=== PATIENT | female | born 1960 | race American Indian/Alaskan Native ===

== ENCOUNTER 2022-02-16 04:44 | Emergency (ER) | payer SELFPAY ==
[2022-02-16] MEDS ORDERED: ONDANSETRON 4 MG/2 ML INJ IV ONE (10:35)
[2022-02-16] MEDS ORDERED: SODIUM CHLORIDE 0.9% 500 ML 500 ML IV ONE (10:35)
[2022-02-16] MEDS ORDERED: MORPHINE 4 MG/1 ML INJ IV ONE (10:35)
--- NOTE | 2022-02-16 10:51 | Emergency Department Report ---
ED Abdominal Pain HPI - General Chief Complaint: Abdominal Pain Stated Complaint: AB PAIN/EAR HURT Time Seen by Provider: 02/16/22 09:28 Source: patient Mode of arrival: Ambulatory Limitations: No Limitations - History of Present Illness Initial Comments: Patient is a 61-year-old female with diffuse abdominal pain that is worse in the bilateral lower quadrants. Started intermittently approximately 3 weeks ago but for the last 3 days its been constant. It is sharp at times but mostly "pressure. She is had no exacerbating or alleviating factors until yesterday when it started hurting to walk. Pain is nonradiating. She has had some straining with stools and states that her last good bowel movement was about a week ago but she has not been eating as much due to the pain. She denies any vaginal bleeding or discharge and has not been sexually active to for 2 months. No fevers chills nausea vomiting or diarrhea. No dysuria urgency frequency. No prior abdominopelvic surgeries except for tubal ligation. Improves With: nothing Worsens With: other (walking) Associated Symptoms: constipation. denies: nausea, vomiting, diarrhea, fever, chills, dysuria, hematemesis, hematochezia, melena, hematuria, anorexia, syncope - Related Data LMP (females 10-50): other (10 years postmenopausal) Previous Rx's Medication Instructions Recorded Last Taken Type Amoxicillin/K Clav Tab [Augmentin 1 tab PO Q12HR 8 Days #16 tab 02/16/22 Unknown Rx 875 mg] traMADoL [Ultram 50 MG tab] 50 mg PO Q6HR PRN #12 tablet 02/16/22 Unknown Rx Allergies Allergy/AdvReac Type Severity Reaction Status Date / Time No Known Allergies Allergy Verified 02/16/22 05:11 ED Review of Systems ROS: Stated complaint: AB PAIN/EAR HURT Other details as noted in HPI Comment: All other systems reviewed and negative Constitutional: denies: chills, fever Eyes: denies: eye pain, eye discharge, vision change ENT: denies: ear pain, throat pain Respiratory: denies: cough, shortness of breath, wheezing Cardiovascular: denies: chest pain, palpitations Endocrine: no symptoms reported Gastrointestinal: as per HPI Genitourinary: denies: urgency, dysuria, frequency, hematuria, discharge, dyspareunia Musculoskeletal: denies: back pain, joint swelling, arthralgia Skin: denies: rash, lesions Neurological: denies: headache, weakness, paresthesias Psychiatric: denies: anxiety, depression Hematological/Lymphatic: denies: easy bleeding, easy bruising ED Past Medical Hx - Past Medical History Previous Medical History?: No - Surgical History Past Surgical History?: Yes Additional Surgical History: Tubal ligation - Social History Smoking Status: Unknown if ever smoked Substance Use Type: None - Medications Home Medications: Home Medications Medication Instructions Recorded Confirmed Last Taken Type Amoxicillin/K Clav Tab [Augmentin 1 tab PO Q12HR 8 Days #16 tab 02/16/22 Unknown Rx 875 mg] traMADoL [Ultram 50 MG tab] 50 mg PO Q6HR PRN #12 tablet 02/16/22 Unknown Rx ED Physical Exam - General Limitations: No Limitations General appearance: alert, in no apparent distress - Head Head exam: Present: atraumatic, normocephalic - Eye Eye exam: Present: normal appearance - ENT ENT exam: Present: mucous membranes moist - Neck Neck exam: Present: normal inspection - Respiratory Respiratory exam: Present: normal lung sounds bilaterally. Absent: respiratory distress - Cardiovascular Cardiovascular Exam: Present: regular rate, normal rhythm. Absent: systolic murmur, diastolic murmur, rubs, gallop - GI/Abdominal GI/Abdominal exam: Present: distended, tenderness (Diffuse), guarding, hyperactive bowel sounds. Absent: rebound, rigid, organomegaly, pulsatile mass - Extremities Exam Extremities exam: Present: normal inspection - Back Exam Back exam: Present: normal inspection - Neurological Exam Neurological exam: Present: alert, oriented X3 - Psychiatric Psychiatric exam: Present: normal affect, normal mood - Skin Skin exam: Present: warm, dry, intact, normal color. Absent: rash ED Course Vital Signs 02/16/22 02/16/22 04:51 16:29 Temperature 98.3 F Pulse Rate 71 57 L Respiratory 18 Rate Blood Pressure 138/72 Blood Pressure 120/50 [Right] O2 Sat by Pulse 100 Oximetry - Reevaluation(s) Reevaluation #1: 02/16/22 14:06 Abdominal exam after morphine revealed soft abdomen with left lower quadrant tenderness. No guarding or rebound. No peritoneal signs. Patient states pain in good control. Serial abdominal exams remain unchanged. But approximately 1400, patient asked for more pain medication. Hemoccult card sent. Reevaluation #2: 09/17/22 15:[address] Payton. Patient is afebrile and does not want to be admitted. Certainly appropriate for outpatient treatment with the understanding that she should return if fever vomiting worse pain or bloody diarrhea ED Medical Decision Making - Lab Data Result diagrams: 02/16/22 10:53 02/16/22 10:53 - Radiology Data Radiology results: report reviewed [facility] [address] [place] [address] Cat Scan Report Signed Patient: NICOLAS LAGOS MR#: [id number] 2 : 1960 Acct:[id number] Age/Sex: 61 / F ADM Date: 02/16/22 Loc: ED Attending Dr: Ordering Physician: PRUDENCE DUKE Date of Service: 02/16/22 Procedure(s): CT abdomen pelvis w con Accession Number(s): [id number] cc: PRUDENCE DUKE CT ABDOMEN AND PELVIS WITH CONTRAST INDICATION / CLINICAL INFORMATION: abdominal pain. TECHNIQUE: Axial CT images were obtained through the abdomen and pelvis after [address] scans at this location are performed using CT dose reduction for ALARA by means of automated exposure control. COMPARISON: None available. FINDINGS: LOWER CHEST: Basilar atelectasis. LIVER: Several tiny subcentimeter hypoechoic densities are too small to completely characterize. GALLBLADDER: No significant abnormality. BILE DUCTS: No significant abnormality. PANCREAS: No significant abnormality. SPLEEN: No significant abnormality. ADRENALS: No significant abnormality. RIGHT KIDNEY / URETER: No significant abnormality. LEFT KIDNEY / URETER: No significant abnormality. STOMACH / SMALL BOWEL: No significant abnormality. COLON: Thickening of the sigmoid segment with surrounding mild fat injection, and the setting of diverticula. Evaluation is somewhat limited by only partial distention and oral contrast attending. APPENDIX: No significant abnormality. PERITONEUM: No free fluid. No free air. No fluid collection. LYMPH NODES: Several mildly prominent. Aortic lymph nodes, nonspecific. AORTA / ARTERIES: Advanced atherosclerosis. IVC / VEINS: Dilation and tortuosity of the canal bases bilaterally, with extensive tortuous and dilated pelvic veins along the sidewalls bilaterally. URINARY BLADDER: No significant abnormality. REPRODUCTIVE ORGANS: 5 cm right adnexal mass, most likely a mimicking rightward tilted uterus, surrounded by dilated pelvic veins.. ADDITIONAL FINDINGS: None. SKELETAL SYSTEM: No significant abnormality. IMPRESSION: 1. Appearances most consistent with mild sigmoid colitis/diverticulitis. No definitive complicating features.. 2. Extensive dilated pelvic sidewall and canal veins which can indicate pelvic congestion syndrome. Findings seen in the setting of a 5 cm right adnexal mass versus mimicking rightward tilted uterus. Gynecologic follow-up is recommended as well as better characterization with pelvic ultrasound. Signer Name: Wilbert Fine MD Signed: 02/16/2022 12:47 PM Workstation Name: [id number] Transcribed By: WP Dictated By: Kemar FINE Electronically Authenticated By: Kemar FINE Signed Date/Time: 02/16/22 1247 DD/ 1238 TD/TT: Print - Medical Decision Making 61-year-old female with diverticulitisnew onset. Afebrile and patient inter ested in treating outpatient if possible. Will treat with Augmentin and give her [facility] to follow-up with with the understanding that she should return if fever vomiting worse pain or bloody diarrhea. She verbalizes understanding of same. Just prior to discharge, patient complained of congestion in her right ear and a mild frontal headache. Exam reveals moderately edematous turbinates and TMs clear. Recommend nasal saline and follow-up with primary care. Critical care attestation.: If time is entered above; I have spent that time in minutes in the direct care of this critically ill patient, excluding procedure time. ED Disposition Clinical Impression: Diverticulitis, Pelvic congestion syndrome Disposition: HOME / SELF CARE / HOMELESS Is pt being admited?: No Condition: Stable Instructions: Diverticulitis, Abdominal Pain (ED) Additional Instructions: Clear liquids until symptoms improving and then bland diet until resolved. High-fiber/low residue diet to prevent future occurrences. Follow-up with primary care. Prescriptions: Amoxicillin/K Clav Tab [Augmentin 875 mg] 1 tab PO Q12HR 8 Days #16 tab traMADoL [Ultram 50 MG tab] 50 mg PO Q6HR PRN #12 tablet PRN Reason: Pain Referrals: SHAGUFTA KENDRICK MD [Staff Physician] - 3-5 Days PRIMARY CARE, [Primary Care Provider] - 3-5 Days KAMRAN RAMON MD [Staff Physician] - 3-5 Days Forms: Work/School Release Form(ED) Time of Disposition: 15:26
[2022-02-16 11:29] LABS: Basophils % (Auto) 0.3 % (0.0-1.8); Eosinophils # (Auto) 0.1 K/mm3 (0.0-0.4); Eosinophils % (Auto) 0.7 % (0.0-4.3); Hematocrit 40.2 % (30.3-42.9); Lymphocytes # (Auto) 3.3 K/mm3 (1.2-5.4); Lymphocytes % (Auto) 28.9 % (13.4-35.0); Mean Corpuscular HGB Conc 32 % (30-34); Mean Corpuscular Volume 98 fl (79-97); Monocytes # (Auto) 0.6 K/mm3 (0.0-0.8); Monocytes % (Auto) 5.4 % (0.0-7.3); Platelet Count 227 K/mm3 (140-440); Red Blood Count 4.12 M/mm3 (3.65-5.03); Red Cell Distribution Width 14.1 % (13.2-15.2)
[2022-02-16 11:50] LABS: Alanine Aminotransferase 9 units/L (7-56); Albumin 4.3 g/dL (3.9-5); Blood Urea Nitrogen 9 mg/dL (7-17); Hemolysis Index 6
[2022-02-16 12:12] LABS: BUN/Creatinine Ratio 18
--- NOTE | 2022-02-16 12:51 | Cat Scan Report ---
CT ABDOMEN AND PELVIS WITH CONTRAST INDICATION / CLINICAL INFORMATION: abdominal pain. TECHNIQUE: Axial CT images were obtained through the abdomen and pelvis after 100 IV contrast. All C T scans at this location are performed using CT dose reduction for ALARA by means of automated exposu re control. COMPARISON: None available. FINDINGS: LOWER CHEST: Basilar atelectasis. LIVER: Several tiny subcentimeter hypoechoic densities are too small to completely characterize. GALLBLADDER: No significant abnormality. BILE DUCTS: No significant abnormality. PANCREAS: No significant abnormality. SPLEEN: No significant abnormality. ADRENALS: No significant abnormality. RIGHT KIDNEY / URETER: No significant abnormality. LEFT KIDNEY / URETER: No significant abnormality. STOMACH / SMALL BOWEL: No significant abnormality. COLON: Thickening of the sigmoid segment with surrounding mild fat injection, and the setting of dive rticula. Evaluation is somewhat limited by only partial distention and oral contrast attending. APPENDIX: No significant abnormality. PERITONEUM: No free fluid. No free air. No fluid collection. LYMPH NODES: Several mildly prominent. Aortic lymph nodes, nonspecific. AORTA / ARTERIES: Advanced atherosclerosis. IVC / VEINS: Dilation and tortuosity of the canal bases bilaterally, with extensive tortuous and dila juan pelvic veins along the sidewalls bilaterally. URINARY BLADDER: No significant abnormality. REPRODUCTIVE ORGANS: 5 cm right adnexal mass, most likely a mimicking rightward tilted uterus, surrou nded by dilated pelvic veins.. ADDITIONAL FINDINGS: None. SKELETAL SYSTEM: No significant abnormality. IMPRESSION: 1. Appearances most consistent with mild sigmoid colitis/diverticulitis. No definitive complicating f eatures.. 2. Extensive dilated pelvic sidewall and canal veins which can indicate pelvic congestion syndrome. F indings seen in the setting of a 5 cm right adnexal mass versus mimicking rightward tilted uterus. Gy necologic follow-up is recommended as well as better characterization with pelvic ultrasound. Signer Name: Wilbert Fine MD Signed: 02/16/2022 12:47 PM Workstation Name: [id number]
[2022-02-16 13:07] LABS: Color,Urine Yellow (Yellow)
[2022-02-16 13:08] LABS: Bacteria,Urine 1+ /HPF (Negative); Mucus,Urine FEW /HPF
[2022-02-16] MEDS ORDERED: MORPHINE 2 MG/1 ML INJ IV ONE (14:07)
[2022-02-16 16:35] VITALS: BP 120/50
== END 2022-02-16 16:28 | disposition home or self-care (01) ==
LOC: ED 04:44
DX: K57.92 Diverticulitis of intestine, part unspecified, without perforation or abscess without bleeding (principal); N94.89 Other specified conditions associated with female genital organs and menstrual cycle; Z98.51 Tubal ligation status; Z98.890 Other specified postprocedural states; Z79.899 Other long term (current) drug therapy
CPT/HCPCS: 36415; 74177; 80053; 81001; 82270; 83690; 85025; 87086; 96374; 96375; 96376; 99284; J2270; J2405; J7040; Q9967